=== PATIENT | female | born 1960 | race Caucasian/White ===

== ENCOUNTER 2017-08-20 07:52 | Emergency (ER) | payer MEDICARE, OTHER ==
[~2017-08-20] VITALS: Ht 157.5 cm; Wt 98.2 kg
[~2017-08-20 07:52] MED LIST: ASPI-664 PO; DIAZ-90 PO; EZET10TA3 PO; HYDR-3498 PO; METF500T4 PO; METO-103 PO; ONDA4TAB35 PO; ROSU20TA PO; VALS1TAB65 PO
[2017-08-20 07:56] VITALS: Ht 157.5 cm; Wt 98.2 kg
[2017-08-20] MEDS ORDERED: FAMOTIDINE 20 MG INJ IV STA (08:06)
[2017-08-20] MEDS ORDERED: DIPHENHYDRAMINE 50 MG INJ IV STA (08:06)
[2017-08-20] MEDS ORDERED: METHYLPREDNISOLONE 125 MG INJ IV STA (08:06)
[2017-08-20] MEDS ORDERED: DIPH25CA77 PO (08:47)
[2017-08-20] MEDS ORDERED: PRED50 PO (08:47)
[2017-08-20] MEDS ORDERED: FAMO20TA18 PO (08:47)
--- NOTE | 2017-08-20 08:51 | ERD ---
ER Documentation Chief Complaint Chief Complaint lip swelling and rash throughout her body did not take her BP meds HPI 57-year-old female presents to the emergency department with her daughter for evaluation of hives and lip swelling. Beginning yesterday, patient developed diffuse urticaria. She took some Benadryl and this helped somewhat. However, this morning she awoke with lip swelling. She denies tongue swelling or change in voice. She denies any wheezing. She has no lightheadedness. Patient reports no new medications were no new exposures. However, she has been taking an ARB for some time now. She has never had a similar type reaction ROS All systems reviewed and are negative except as per history of present illness. Medications Home Meds Active Scripts Prednisone (Prednisone) 50 Mg Tab, 50 MG PO DAILY for 5 Days, #5 TAB Prov:KALEIGH TRIVEDI 08/20/17 Famotidine* (Famotidine*) 20 Mg Tablet, 20 MG PO BID for 5 Days, #10 TAB Prov:KALEIGH TRIVEDI 08/20/17 Diphenhydramine HCl (Benadryl) 25 Mg Capsule, 25 MG PO TID for 5 Days, #15 CAP Prov:KALEIGH TRIVEDI 08/20/17 Diazepam* (Valium*) 5 Mg Tablet, 5 MG PO Q8 Y for MUSCLE SPASMS, #12 TAB Prov:EUGENIE HALEY MD 10/04/15 Ondansetron Hcl* (Zofran* ODT) 4 mg -ODT Tab.disper, 4 MG PO Q6 Y for NAUSEA AND /OR VOMITING, #20 TAB Prov:EUGENIE HALEY MD 10/04/15 Hydrocodone Bit-Acetaminophen* ([place]*) 5-325 Mg Tab, 1 TAB PO Q6 Y for PAIN, # 12 TAB Prov:EUGENIE HALEY MD 10/04/15 Reported Medications Aspirin* (Aspirin* EC) 81 Mg Tablet.dr, 81 MG PO DAILY, TAB 10/14/14 Ezetimibe* (Zetia*) 10 Mg Tablet, 10 MG PO DAILY, TAB 10/14/14 Metformin Hcl* (Metformin Hcl*) 500 Mg Tablet, 1000 TAB PO BID 09/27/11 Valsartan-Hydrochlorothiazide (Diovan HCT) 1 Tab Tablet, 1 TAB PO DAILY 09/27/11 Metoprolol Succinate (Toprol Xl) 50 Mg Tab.sr.24h, 1 TAB PO DAILY 09/27/11 Rosuvastatin Calcium* (Crestor*) 20 Mg Tablet, 1 TAB PO DAILY 09/27/11 Allergies Allergies: Coded Allergies: losartan (Verified Allergy, Severe, RASH , LIP SWELLING, 08/20/17) PMhx/Soc History of Surgery: Yes (appendectomy, cardiac stent placement) Anesthesia Reaction: No Hx Neurological Disorder: No Hx Respiratory Disorders: No Hx Cardiac Disorders: Yes (acute [place], HTN, hyperlipidemia ) Hx Psychiatric Problems: Yes (anxiety ) Hx Miscellaneous Medical Probl: Yes (diabetes ) Hx Alcohol Use: No Hx Substance Use: No Hx Tobacco Use: No Smoking Status: Never smoker FmHx Noncontributory for chief complaint Physical Exam Vitals Vital Signs Date Time Temp Pulse Resp B/P Pulse Ox O2 Delivery O2 Flow Rate FiO2 08/20/17 07:56 97.8 70 18 229/101 99 Physical Exam GENERAL: The patient is well developed and appropriate for usual state of health in no apparent distress HEENT: Pupils equal, round, and reactive to light. EOMI. There is no scleral icterus. Lower lip is swollen with evidence of angioedema. The upper lip appears to be normal. The oropharynx is normal. There is no uvular edema. The tongue is normal in appearance. NECK: C-spine is soft and supple, there is no meningismus. There is no cervical lymphadenopathy. There is no stridor. LUNGS: Clear to auscultation bilaterally. There are no rales, wheezes or rhonchi. HEART: Regular rate and rhythm, no murmurs, clicks, rubs or gallops. ABDOMEN: Soft, non-tender, non-distended. There are bowel sounds in all four quadrants. No rebound or guarding. EXTREMITIES: There is no peripheral cyanosis or edema. No focal swelling or erythema. NEURO: The patient moves all four extremities with 5/5 strength. Cranial nerves II - XII are intact. Normal gait. Alert and oriented SKIN: Hives noted. No evidence of infection HEME/LYMPHATIC: There is no evidence of excessive bruising or lymphedema. PSYCHIATRIC: The patient does not appear anxious or depressed. Results 24 hrs Current Medications Medications (Trade) Dose Ordered Sig/Christo Route PRN Reason Start Time Stop Time Status Last Admin Dose Admin Diphenhydramine HCl (Benadryl) 50 mg ONCE STAT IV 08/20/17 08:06 08/20/17 08:07 DC 08/20/17 08:20 Famotidine (Pepcid Iv) 20 mg ONCE STAT IV 08/20/17 08:06 08/20/17 08:07 DC 08/20/17 08:20 Methylprednisolone Sodium Succinate (Solu-Medrol) 125 mg ONCE STAT IV 08/20/17 08:06 08/20/17 08:07 DC 08/20/17 08:20 Procedures/MDM Patient was taken to a room, seen and examined. Patient was observed for approximately 1 hour after receiving antihistamines and steroid medication. Throughout that observation, patient showed no evidence of worsening anaphylaxis or angioedema. Patient had no evidence of respiratory compromise or airway compromise. Patient remained clinically well in appearance Medical decision makin-year-old female presented with angioedema. This is likely secondary to her ARB medication. At this time, patient shows no evidence of anaphylaxis or airway compromise and appears appropriate for outpatient supportive care. Family and patient have both been educated on the need for medication changes. Departure Diagnosis: Primary Impression: Angioedema due to angiotensin converting enzyme inhibitor(CLOVER-I) Additional Impression: Angioedema Condition: Stable Patient Instructions: Angioedema Additional Instructions: Please see your doctor this week. DO NOT EVER USE AN CLOVER INHIBITOR TYPE MEDICATION AGAIN Return for any problems or concerns KALEIGH TRIVEDI Aug 20, 2017 08:51
[2017-08-20 09:04] VITALS: BP 180/91; PULSE 72; RESP 18; TEMP 98.1
== END 2017-08-20 09:15 | disposition home or self-care (01) ==
LOC: E/R 07:52
DX: T78.3XXA Angioneurotic edema, initial encounter (principal); E11.9 Type 2 diabetes mellitus without complications; I10 Essential (primary) hypertension; T88.7XXA Unspecified adverse effect of drug or medicament, initial encounter; Y82.9 Unspecified medical devices associated with adverse incidents; Z98.61 Coronary angioplasty status; Z79.84 Long term (current) use of oral hypoglycemic drugs; Z79.82 Long term (current) use of aspirin
CPT/HCPCS: 96374; 96375; 99284; J1200; J2930

== ENCOUNTER 2017-08-22 14:27 | Emergency (ER) | payer MEDICARE, OTHER ==
[~2017-08-22] VITALS: Ht 160 cm; Wt 97.5 kg
[~2017-08-22 14:27] MED LIST changes: +DIPH25CA77 PO; +FAMO20TA18 PO; +PRED50 PO
[2017-08-22 14:28] VITALS: Ht 160 cm; Wt 97.5 kg
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
[2017-08-22 15:39] VITALS: BP 138/74; PULSE 86; RESP 20; TEMP 98.3
== END 2017-08-22 15:40 | disposition home or self-care (01) ==
LOC: E/R 14:27
DX: R60.0 Localized edema (principal); T46.5X5A Adverse effect of other antihypertensive drugs, initial encounter; I10 Essential (primary) hypertension; E11.9 Type 2 diabetes mellitus without complications; I25.10 Atherosclerotic heart disease of native coronary artery without angina pectoris; Z79.82 Long term (current) use of aspirin; Z95.1 Presence of aortocoronary bypass graft; Z79.84 Long term (current) use of oral hypoglycemic drugs
CPT/HCPCS: 99282

== ENCOUNTER 2017-08-28 02:24 | Inpatient (IN) | payer MEDICARE, OTHER ==
[2017-08-28] VITALS (7 sets, daily range): BP systolic 113–142; BP diastolic 59–68; PULSE 70–102; RESP 18–20; TEMP 99; Ht 167.6 cm; Wt 96.0 kg
[~2017-08-28] VITALS: Ht 167.6 cm; Wt 96.0 kg
[2017-08-28] MEDS ORDERED: morphine 4 MG/ML VIAL IV STA (04:28)
[2017-08-28] MEDS ORDERED: ONDANSETRON 4 MG INJ IV STA (04:28)
[2017-08-28] MEDS ORDERED: SOD CHLORIDE 0.9% 1,000 ML IV STA ×3 (04:28→07:51)
[2017-08-28 06:10] LABS: BASOPHILS % 0.2 % (0.0-2.0); EOSINOPHILS # 0.1 10^3/ul (0.0-0.5); EOSINOPHILS % 0.7 % (0.0-7.0); HEMATOCRIT 40.2 % (37.0-47.0); HEMOGLOBIN 13.8 g/dl (12.0-16.0); LYMPHOCYTES # 0.7 10^3/ul (0.8-2.9); LYMPHOCYTES % 4.3 % (15.0-51.0); MEAN CORPUSCULAR HEMOGLOBIN 30.6 pg (29.0-33.0); MEAN CORPUSCULAR HGB CONC 34.3 g/dl (32.0-37.0); MEAN CORPUSCULAR VOLUME 89.1 fl (82.0-101.0); MEAN PLATELET VOLUME 10.6 fl (7.4-10.4); MONOCYTE # 1.1 10^3/ul (0.3-0.9); MONOCYTES % 7.1 % (0.0-11.0); NEUTROPHIL # 13.1 10^3/ul (1.6-7.5); NEUTROPHILS % 86.4 % (39.0-77.0); PLATELET COUNT 260 10^3/UL (140-415); RED BLOOD COUNT 4.51 10^6/ul (4.20-5.40); RED CELL DISTRIBUTION WIDTH 12.6 % (11.5-14.5); WHITE BLOOD COUNT 15.2 10^3/ul (4.8-10.8)
[2017-08-28 06:39] LABS: ALANINE AMINOTRANSFERASE 48 IU/L (13-69); ALBUMIN 4.2 g/dl (3.3-4.9); ALKALINE PHOSPHATASE 71 IU/L (42-121); ANION GAP 17 (8-16); ASPARTATE AMINO TRANSFERASE 30 IU/L (15-46); BILIRUBIN,INDIRECT 0.5 mg/dl (0-1.1); BILIRUBIN,TOTAL 0.5 mg/dl (0.2-1.3); BLOOD UREA NITROGEN 23 mg/dl (7-20); CALCIUM 9.6 mg/dl (8.4-10.2); CARBON DIOXIDE 28 mmol/L (21-31); CHLORIDE 97 mmol/L (97-110); CREATININE 0.71 mg/dl (0.44-1.00); GLUCOSE 268 mg/dl (70-220); POTASSIUM 4.4 mmol/L (3.5-5.1); SODIUM 138 mmol/L (135-144); TOTAL PROTEIN 7.7 g/dl (6.1-8.1)
[2017-08-28 06:40] LABS: INR 0.95; PROTIME 12.8 Sec (11.9-14.9)
[2017-08-28] MEDS ORDERED: NITROGLYCERIN 2% 1 GM OINT PKT TD STA (06:40)
[2017-08-28] MEDS ORDERED: ASPIRIN 81 MG TAB PO STA (06:40)
[2017-08-28 06:58] LABS: TROPONIN-I < 0.012 ng/ml (0.00-0.12)
[2017-08-28 06:59] LABS: UR BILIRUBIN (Dip) NEGATIVE (NEGATIVE); UR CLARITY CLEAR (CLEAR); UR COLOR LT. YELLOW (YELLOW); UR GLUCOSE (Dip) NEGATIVE (NEGATIVE); UR KETONES (Dip) TRACE mg/dL (NEGATIVE); UR TOTAL PROTEIN (Dip) NEGATIVE (NEGATIVE)
[2017-08-28 07:00] LABS: ADD UMIC YES; UR BLOOD (Dip) 1+ mg/dL (NEGATIVE); UR LEUKOCYTE ESTERASE (Dip) NEGATIVE Leu/ul (NEGATIVE); UR NITRITE (Dip) NEGATIVE (NEGATIVE); UR UROBILINOGEN (Dip) 0.2 E.U./dL mg/dL (NEGATIVE)
[2017-08-28] MEDS ORDERED: NITROGLYCERIN (SL) 0.4 MG TAB SL PRN (07:00)
[2017-08-28 07:11] LABS: UR BACTERIA RARE /HPF (NONE SEEN); UR SQUAMOUS EPITHELIAL CELL RARE /HPF (FEW); URINE RBCS 0-2 /HPF (0)
--- NOTE | 2017-08-28 07:42 | RADRPT ---
PROCEDURE: XR Chest. CLINICAL INDICATION: Chest pain. TECHNIQUE: AP Portable chest. COMPARISON: CR CHEST 10/04/2015; CR CHEST 11/17/2012; CR CHEST 09/27/2011 FINDINGS: The cardiomediastinal silhouette is normal.The aortic arch is calcified. No focal consolidation, ple ural effusion or pneumothorax is seen. The osseous structures are intact. IMPRESSION: No radiographic evidence of acute cardiopulmonary disease. Physician Rajni Date Time Electronically viewed and signed by Jennifer Mosqueda Physician on 08/28/2017 07:41 CS/
[2017-08-28] MEDS ORDERED: CEFTRIAXONE 1 GM/50 ML (PMX) 50 ML IVPB ONE (08:00)
[2017-08-28] MEDS ORDERED: ONDANSETRON 4 MG INJ IV PRN ×2 (08:00→14:30)
[2017-08-28] MEDS ORDERED: ACETAMINOPHEN 325 MG TAB PO ONE (08:00)
[2017-08-28] MEDS ORDERED: ACETAMINOPHEN 325 MG TAB PO PRN (08:00)
--- NOTE | 2017-08-28 08:19 | RADRPT ---
PROCEDURE: CT of the abdomen and pelvis without contrast CLINICAL INDICATION: Nausea and vomiting TECHNIQUE: Spiral CT images through the abdomen and pelvis without the use of contrast. The admin istered radiation dose is CTDI 22.53 mGy and DLP 1414.84 mGy*cm. Coronal and sagittal reformatted i mages were submitted. One or more of the following dose reduction techniques were used: automated e xposure control, adjustment of the mA and/or kV according to patient size, or use of iterative recon struction technique. DICOM images are available. COMPARISON: CT 10/04/2015 FINDINGS: Lack of oral and intravenous contrast and motion artifact limits evaluation. Lingular and basilar linear atelectasis are visualized. There is motion artifact. No pleural effusion is seen. The liver, spleen, adrenals, kidneys, and pancreas are unremarkable in appearance. There is no evid ence of cholelithiasis or biliary ductal dilatation. The kidneys are normal in size and contour. The re are a few nonobstructing punctate bilateral renal calculi. No evidence of obstructive uropathy is seen. The aorta is calcified and normal in caliber.. There is no evidence for bowel obstruction, f ree air, or abscess. The appendix is are visualized. There are nondilated fluid-filled loops of sma ll bowel. There is colonic diverticulosis without evidence of diverticulitis. No adenopathy or asci thi is seen. The left lower abdominal wall of the transverse abdominus lipoma is unchanged. The [place] ilia is anteverted. The bladder is unremarkable.. The osseous structures are intact. IMPRESSION: Limited due to motion. No definite acute abnormality of the abdomen or pelvis. No evidence of bowel obstruction. Nonobstructing punctate bilateral renal calculi. Colonic diverticulosis without evidence of acute diverticulitis. RPTAT: HCNS Physician Rajni Date Time Electronically viewed and signed by Physician Rajni on 08/28/2017 08:18 CS/
--- NOTE | 2017-08-28 08:37 | ERD ---
ER Documentation Chief Complaint Chief Complaint bib fire for nausea and vomiting x 5 times today HPI Patient is a 57-year-old female with diabetes, hypertension, and coronary disease who presents with shortness of breath. The patient was in the ER last week 3 times for angioedema after taking losartan for the family. The patient started with vomiting last night at 11 PM that was constant for 1 hour. Her blood pressure was elevated at 230/175. She was brought in by ambulance this morning. She feels short of breath and says "the air was not enough". She is a dry mouth as well. She has had no treatment as of yet. She said that the symptoms felt similar to when she had a myocardial infarction in the past. Upon review of old medical records she does have multiple visits to the ER. ROS All systems reviewed and are negative except as per history of present illness. Medications Home Meds Active Scripts Prednisone (Prednisone) 50 Mg Tab, 50 MG PO DAILY for 5 Days, #5 TAB Prov:KALEIGH TRIVEDI 08/20/17 Famotidine* (Famotidine*) 20 Mg Tablet, 20 MG PO BID for 5 Days, #10 TAB Prov:KALEIGH TRIVEDI 08/20/17 Diphenhydramine HCl (Benadryl) 25 Mg Capsule, 25 MG PO TID for 5 Days, #15 CAP Prov:KALEIGH TRIVEDI 08/20/17 Diazepam* (Valium*) 5 Mg Tablet, 5 MG PO Q8 Y for MUSCLE SPASMS, #12 TAB Prov:EUGENIE HALEY MD 10/04/15 Ondansetron Hcl* (Zofran* ODT) 4 mg -ODT Tab.disper, 4 MG PO Q6 Y for NAUSEA AND /OR VOMITING, #20 TAB Prov:EUGENIE HALEY MD 10/04/15 Hydrocodone Bit-Acetaminophen* ([place]*) 5-325 Mg Tab, 1 TAB PO Q6 Y for PAIN, # 12 TAB Prov:EUGENIE HALEY MD 10/04/15 Reported Medications Aspirin* (Aspirin* EC) 81 Mg Tablet.dr, 81 MG PO DAILY, TAB 10/14/14 Ezetimibe* (Zetia*) 10 Mg Tablet, 10 MG PO DAILY, TAB 10/14/14 Metformin Hcl* (Metformin Hcl*) 500 Mg Tablet, 1000 TAB PO BID 1/21/12 Valsartan-Hydrochlorothiazide (Diovan HCT) 1 Tab Tablet, 1 TAB PO DAILY 09/27/11 Metoprolol Succinate (Toprol Xl) 50 Mg Tab.sr.24h, 1 TAB PO DAILY 09/27/11 Rosuvastatin Calcium* (Crestor*) 20 Mg Tablet, 1 TAB PO DAILY 09/27/11 Allergies Allergies: Coded Allergies: losartan (Verified Allergy, Severe, RASH , LIP SWELLING, 08/20/17) PMhx/Soc History of Surgery: Yes (corotid artery bipass) Anesthesia Reaction: No Hx Neurological Disorder: No Hx Respiratory Disorders: No Hx Cardiac Disorders: Yes (htn,) Hx Psychiatric Problems: Yes (Anxiety) Hx Alcohol Use: No Hx Substance Use: No Hx Tobacco Use: No Smoking Status: Never smoker FmHx Family History: diabetes Physical Exam Vitals Vital Signs Date Time Temp Pulse Resp B/P Pulse Ox O2 Delivery O2 Flow Rate FiO2 08/28/17 08:18 93 18 116/74 99 Room Air 08/28/17 07:10 100.3 120 20 114/68 95 Room Air 08/28/17 04:30 98.7 121 16 125/78 98 Room Air 08/28/17 02:31 98.8 121 18 160/83 100 Physical Exam Const: Moderate distress Head: Atraumatic Eyes: Normal Conjunctiva ENT: Normal External Ears, Nose and Mouth. Neck: Full range of motion..~ No meningismus. Resp: Clear to auscultation bilaterally Cardio: Tachycardic rate without murmur Abd: Soft, non tender, non distended. Normal bowel sounds Skin: No petechiae or rashes Back: No midline or flank tenderness Ext: No cyanosis, or edema Neur: Awake and alert Psych: Normal Mood and Affect Result Diagram: 08/28/17 0600 08/28/17 0600 Results 24 hrs Laboratory Tests Test 08/28/17 06:00 08/28/17 06:05 White Blood Count 15.210^3/ul Red Blood Count 4.5110^6/ul Hemoglobin 13.8g/dl Hematocrit 40.2% Mean Corpuscular Volume 89.1fl Mean Corpuscular Hemoglobin 30.6pg Mean Corpuscular Hemoglobin Concent 34.3g/dl Red Cell Distribution Width 12.6% Platelet Count 65248^3/UL Mean Platelet Volume 10.6fl Neutrophils % 86.4% Lymphocytes % 4.3% Monocytes % 7.1% Eosinophils % 0.7% Basophils % 0.2% Nucleated Red Blood Cells % 0.0/100WBC Neutrophils # 13.110^3/ul Lymphocytes # 0.710^3/ul Monocytes # 1.110^3/ul Eosinophils # 0.110^3/ul Basophils # 0.010^3/ul Nucleated Red Blood Cells # 0.010^3/ul Prothrombin Time 12.8Sec Prothrombin Time Ratio 1.0 INR International Normalized Ratio 0.95 Activated Partial Thromboplast Time 25.0Sec Sodium Level 138mmol/L Potassium Level 4.4mmol/L Chloride Level 97mmol/L Carbon Dioxide Level 28mmol/L Anion Gap 17 Blood Urea Nitrogen 23mg/dl Creatinine 0.71mg/dl Glucose Level 268mg/dl Lactic Acid Level 3.7mmol/L Calcium Level 9.6mg/dl Total Bilirubin 0.5mg/dl Direct Bilirubin 0.00mg/dl Indirect Bilirubin 0.5mg/dl Aspartate Amino Transf (AST/SGOT) 30IU/L Alanine Aminotransferase (ALT/SGPT) 48IU/L Alkaline Phosphatase 71IU/L Troponin I < 0.012ng/ml Total Protein 7.7g/dl Albumin 4.2g/dl Globulin 3.50g/dl Albumin/Globulin Ratio 1.20 Lipase 175U/L Urine Color LT. YELLOW Urine Clarity CLEAR Urine pH 5.5 Urine Specific [place] 1.025 Urine Ketones TRACEmg/dL Urine Nitrite NEGATIVEmg/dL Urine Bilirubin NEGATIVEmg/dL Urine Urobilinogen 0.2 E.U./dLmg/dL Urine Leukocyte Esterase NEGATIVELeu/ul Urine Microscopic RBC 0-2/HPF Urine Microscopic WBC 0-2/HPF Urine Squamous Epithelial Cells RARE/HPF Urine Bacteria RARE/HPF Urine Hemoglobin 1+mg/dL Urine Glucose NEGATIVEmg/dL Urine Total Protein NEGATIVEmg/dl Current Medications Medications (Trade) Dose Ordered Sig/Christo Route PRN Reason Start Time Stop Time Status Last Admin Dose Admin Sodium Chloride (NS) 1,000 ml @ 1,000 mls/hr Q1H STAT IV 08/28/17 04:28 08/28/17 05:27 DC 08/28/17 06:10 Morphine Sulfate (morphine) 4 mg ONCE STAT IV 08/28/17 04:28 08/28/17 04:30 DC 08/28/17 06:11 Ondansetron HCl 4 mg 4 mg ONCE STAT IV 08/28/17 04:28 08/28/17 04:30 DC 08/28/17 06:11 Sodium Chloride (NS) 1,000 ml @ 1,000 mls/hr Q1H STAT IV 08/28/17 06:40 08/28/17 07:39 DC 08/28/17 07:13 Aspirin (Aspirin) 162 mg ONCE STAT PO 08/28/17 06:40 08/28/17 06:41 DC 08/28/17 07:30 Nitroglycerin (Nitroglycerin 2% Oint) 1 inch ONCE STAT TD 08/28/17 06:40 08/28/17 06:41 DC 08/28/17 07:30 Nitroglycerin (Nitroglycerin (Sl Tab) 0.4 Mg) 1 tab Q5M UP TO 3 DOSES PRN SL CHEST PAIN 08/28/17 07:00 Ondansetron HCl (Zofran Inj) 4 mg ER BRIDGE PRN IV NAUSEA AND/OR VOMITING 08/28/17 08:00 08/29/17 07:59 Acetaminophen 650 mg 650 mg ER BRIDGE PRN PO MILD PAIN/FEVER 08/28/17 08:00 08/29/17 07:59 Sodium Chloride (NS) 1,000 ml @ 1,000 mls/hr Q1H STAT IV 08/28/17 07:51 08/28/17 08:50 08/28/17 08:06 Acetaminophen 650 mg 650 mg ONCE ONCE PO 08/28/17 08:00 08/28/17 08:01 DC 08/28/17 08:06 Ceftriaxone Sodium (Rocephin) 50 ml @ 100 mls/hr ONCE ONCE IVPB 08/28/17 08:00 08/28/17 08:29 DC 08/28/17 08:06 Procedures/MDM EKG read by me: Rate/Rhythm: Sinus tachycardia Intervals: Normal Impression: Tachycardia with ST depressions in leads I and aVL Chest x-ray is negative for pneumonia or pneumothorax per radiology. CT abdomen pelvis shows no surgical process per radiology. Admit MDM: Patient's infectious symptoms have not stabilized and the patient is at risk of rapid decompensation. The patient will be admitted for careful hydration, antibiotic therapy, and infectious source control. Severe Sepsis criteria: Infectious source: Unclear etiology at this time, possibly viral End organ damage indicated by: Lactate greater than 2 Sepsis Management: Time of recognition of sepsis: 7:10 AM once the patient developed a fever Within 3 hours of recognition: Blood cultures x 2 before broad-spectrum antibiotics: Yes 30 ml/kg NS bolus Completed Initial lactate 3.7 Repeat lactate pending Time of recognition of septic shock: No septic shock Septic Shock Assessment: Any lactic acid > 4.0 No Persistent hypotension (SBP < 90 or 40 mmHg drop, MAP < 65) despite 30 mL/kg IV fluid bolus No Volume Re-assessment for Septic Shock (post 30 ml/kg bolus): Septic shock at this time Persistent Hypotension Treatment: Comfort care No Central line Not Required Vasopressor started Not required I considered further perfusion assessment with CVP measurement, SCVO2, bedside ultrasound volume assessment, passive leg raise, trial of further fluid bolus. And proceeded with 30 ml/kg fluid bolus of NSS, broad spectrum antibiotics, and admission. The patient was also given aspirin nitroglycerin initially as there was concern this could have been acute coronary syndrome. Accepting Care Team Current data and ongoing care discussed. Admitting Physician: Dr. Matthews Oil [employer] Tool Driller(s): None Outstanding Data: Culture results and repeat lactic acid Critical Care: Critical care time 35 minutes excluding all billable procedures Emergent fluid management while maintaining close respiratory support. Provision of immediate and broad-spectrum antibiotic therapy. Simultaneous assessment for possible sources in order to direct targeted therapy. Consideration for invasive and chemical support to prevent cardiopulmonary collapse. Departure Diagnosis: Primary Impression: Chest pain Chest pain type: unspecified Qualified Code: R07.9 - Chest pain, unspecified type Additional Impressions: Hypertensive urgency Nausea and vomiting Vomiting type: unspecified Vomiting Intractability: non-intractable Qualified Code: R11.2 - Non-intractable vomiting with nausea, unspecified vomiting type Severe sepsis Hyperglycemia Condition: THERESA Hunter MD Aug 28, 2017 08:37
[2017-08-28] MEDS ORDERED: METO-319 PO (12:42)
[2017-08-28] MEDS ORDERED: METF500T4 PO (12:42)
[2017-08-28] MEDS ORDERED: ROSU20TA PO (12:43)
[2017-08-28] MEDS ORDERED: VALS1TAB78 PO (12:43)
--- NOTE | 2017-08-28 14:08 | HP ---
Date/Time of Note Date/Time of Note DATE: 08/28/17 TIME: 13:55 Assessment/Plan VTE Prophylaxis VTE Prophylaxis Intervention: LMWH Assessment/Plan Assessment/Plan 57-year-old female who presents with epigastric discomfort with associated nausea with the followin. Abdominal pain and nausea likely secondary to diabetic gastroparesis rule out possible peptic ulcer disease 2. Mild diabetic ketoacidosis with ketonuria and metabolic/lactic acidosis. 3. Systemic inflammatory response syndrome likely secondary to #2 4. Hypertension with improved control. 5. History of dyslipidemia Plan: Patient is being admitted for further monitoring and workup, as there was concerns of some shortness of breath, will rule out an acute coronary syndrome. Patient's DKA is mild, so I will just start her on subcutaneous insulin with IV fluids and hold off on insulin drip for now. Will repeat labs every 4 hours and adjust regimen as necessary. Also send cultures and use pain control/ antiemetics/ antipyretics/ supportive care as needed. Further interventions will depend on clinical course. HPI/ROS Admit Date/Time Admit Date/Time Aug 28, 2017 at 08:04 Hx of Present Illness 57-year-old female who presents to emergency room with epigastric pain since 9 PM yesterday associated with a lot of nausea and vomiting. She has a history of diabetes hypertension or coronary artery disease. Pain is associated with diffuse abdominal pain. Per report from the ER she had also complained of some shortness of breath. At the time of my review patient denies shortness of breath however. She denies fever, denies palpitation denies dysuria or hematuria. Last bowel movement was yesterday and seemed to be normal. ROS 12 point review if systems was done and pertinent findings are as noted. PMH/Family/Social Past Medical History * CAD Medical History: diabetes, high cholesterol, hypertension Social History Alcohol Use: none Smoking Status: Never smoker Exam/Review of Systems Vital Signs Vitals Vital Signs Date Time Temp Pulse Resp B/P Pulse Ox O2 Delivery O2 Flow Rate FiO2 08/28/17 13:30 98.3 76 20 113/59 100 Room Air Exam Constitutional: alert, oriented, other (obese) Psych: anxiety Head: normocephalic Eyes: PERRL, No icteric Neck: non-tender, supple Respiratory: clear to auscultation, diminished breath sounds Cardiovascular: regular rate and rhythm, No murmurs/extra sounds Gastrointestinal: bowel sounds, soft, tender ( in epigastric area) Neurological: No focal weakness Labs Result Diagram: 08/28/17 0600 08/28/17 0600 Procedures Procedures Laboratory Tests Test 08/28/17 06:00 08/28/17 06:05 08/28/17 09:08 White Blood Count 15.210^3/ul Red Blood Count 4.5110^6/ul Hemoglobin 13.8g/dl Hematocrit 40.2% Mean Corpuscular Volume 89.1fl Mean Corpuscular Hemoglobin 30.6pg Mean Corpuscular Hemoglobin Concent 34.3g/dl Red Cell Distribution Width 12.6% Platelet Count 66716^3/UL Mean Platelet Volume 10.6fl Neutrophils % 86.4% Lymphocytes % 4.3% Monocytes % 7.1% Eosinophils % 0.7% Basophils % 0.2% Nucleated Red Blood Cells % 0.0/100WBC Neutrophils # 13.110^3/ul Lymphocytes # 0.710^3/ul Monocytes # 1.110^3/ul Eosinophils # 0.110^3/ul Basophils # 0.010^3/ul Nucleated Red Blood Cells # 0.010^3/ul Prothrombin Time 12.8Sec Prothrombin Time Ratio 1.0 INR International Normalized Ratio 0.95 Activated Partial Thromboplast Time 25.0Sec Sodium Level 138mmol/L Potassium Level 4.4mmol/L Chloride Level 97mmol/L Carbon Dioxide Level 28mmol/L Anion Gap 17 Blood Urea Nitrogen 23mg/dl Creatinine 0.71mg/dl Glucose Level 268mg/dl Lactic Acid Level 3.7mmol/L 2.6mmol/L Calcium Level 9.6mg/dl Total Bilirubin 0.5mg/dl Direct Bilirubin 0.00mg/dl Indirect Bilirubin 0.5mg/dl Aspartate Amino Transf (AST/SGOT) 30IU/L Alanine Aminotransferase (ALT/SGPT) 48IU/L Alkaline Phosphatase 71IU/L Troponin I < 0.012ng/ml Total Protein 7.7g/dl Albumin 4.2g/dl Globulin 3.50g/dl Albumin/Globulin Ratio 1.20 Lipase 175U/L Urine Color LT. YELLOW Urine Clarity CLEAR Urine pH 5.5 Urine Specific [place] 1.025 Urine Ketones TRACEmg/dL Urine Nitrite NEGATIVEmg/dL Urine Bilirubin NEGATIVEmg/dL Urine Urobilinogen 0.2 E.U./dLmg/dL Urine Leukocyte Esterase NEGATIVELeu/ul Urine Microscopic RBC 0-2/HPF Urine Microscopic WBC 0-2/HPF Urine Squamous Epithelial Cells RARE/HPF Urine Bacteria RARE/HPF Urine Hemoglobin 1+mg/dL Urine Glucose NEGATIVEmg/dL Urine Total Protein NEGATIVEmg/dl Current Medications Medications (Trade) Dose Ordered Sig/Christo Route PRN Reason Start Time Stop Time Status Last Admin Dose Admin Sodium Chloride (NS) 1,000 ml @ 1,000 mls/hr Q1H STAT IV 08/28/17 04:28 08/28/17 05:27 DC 08/28/17 06:10 1,000 MLS/HR Morphine Sulfate (morphine) 4 mg ONCE STAT IV 08/28/17 04:28 08/28/17 04:30 DC 08/28/17 06:11 4 MG Ondansetron HCl 4 mg 4 mg ONCE STAT IV 08/28/17 04:28 08/28/17 04:30 DC 08/28/17 06:11 4 MG Sodium Chloride (NS) 1,000 ml @ 1,000 mls/hr Q1H STAT IV 08/28/17 06:40 08/28/17 07:39 DC 08/28/17 07:13 1,000 MLS/HR Aspirin (Aspirin) 162 mg ONCE STAT PO 08/28/17 06:40 08/28/17 06:41 DC 08/28/17 07:30 162 MG Nitroglycerin (Nitroglycerin 2% Oint) 1 inch ONCE STAT TD 08/28/17 06:40 08/28/17 06:41 DC 08/28/17 07:30 1 INCH Nitroglycerin (Nitroglycerin (Sl Tab) 0.4 Mg) 1 tab Q5M UP TO 3 DOSES PRN SL CHEST PAIN 08/28/17 07:00 Ondansetron HCl (Zofran Inj) 4 mg ER BRIDGE PRN IV NAUSEA AND/OR VOMITING 08/28/17 08:00 08/29/17 07:59 Acetaminophen 650 mg 650 mg ER BRIDGE PRN PO MILD PAIN/FEVER 08/28/17 08:00 08/29/17 07:59 Sodium Chloride (NS) 1,000 ml @ 1,000 mls/hr Q1H STAT IV 08/28/17 07:51 08/28/17 08:50 DC 08/28/17 08:06 1,000 MLS/HR Acetaminophen 650 mg 650 mg ONCE ONCE PO 08/28/17 08:00 08/28/17 08:01 DC 08/28/17 08:06 650 MG Ceftriaxone Sodium (Rocephin) 50 ml @ 100 mls/hr ONCE ONCE IVPB 08/28/17 08:00 08/28/17 08:29 DC 08/28/17 08:06 100 MLS/HR PROCEDURE: XR Chest. CLINICAL INDICATION: Chest pain. TECHNIQUE: AP Portable chest. COMPARISON: CR CHEST 10/04/2015; CR CHEST 11/17/2012; CR CHEST 09/27/2011 FINDINGS: The cardiomediastinal silhouette is normal.The aortic arch is calcified. No focal consolidation, pleural effusion or pneumothorax is seen. The osseous structures are intact. IMPRESSION: No radiographic evidence of acute cardiopulmonary disease. Physician Rajni Date Time Electronically viewed and signed by Jennifer Mosqueda Physician on 08/28/2017 07: 41 CS/ CC: THERESA MADERA MD PROCEDURE: CT of the abdomen and pelvis without contrast CLINICAL INDICATION: Nausea and vomiting TECHNIQUE: Spiral CT images through the abdomen and pelvis without the use of contrast. The administered radiation dose is CTDI 22.53 mGy and DLP 1414.84 mGy*cm. Coronal and sagittal reformatted images were submitted. One or more of the following dose reduction techniques were used: automated exposure control, adjustment of the mA and/or kV according to patient size, or use of iterative reconstruction technique. DICOM images are available. COMPARISON: CT 10/04/2015 FINDINGS: Lack of oral and intravenous contrast and motion artifact limits evaluation. Lingular and basilar linear atelectasis are visualized. There is motion artifact. No pleural effusion is seen. The liver, spleen, adrenals, kidneys, and pancreas are unremarkable in appearance. There is no evidence of cholelithiasis or biliary ductal dilatation. The kidneys are normal in size and contour. There are a few nonobstructing punctate bilateral renal calculi. No evidence of obstructive uropathy is seen. The aorta is calcified and normal in caliber.. There is no evidence for bowel obstruction, free air, or abscess. The appendix is are visualized. There are nondilated fluid-filled loops of small bowel. There is colonic diverticulosis without evidence of diverticulitis. No adenopathy or ascites is seen. The left lower abdominal wall of the transverse abdominus lipoma is unchanged. The uterus is anteverted. The bladder is unremarkable.. The osseous structures are intact. IMPRESSION: Limited due to motion. No definite acute abnormality of the abdomen or pelvis. No evidence of bowel obstruction. Nonobstructing punctate bilateral renal calculi. Colonic diverticulosis without evidence of acute diverticulitis. RPTAT: HCNS Physician Rajni Date Time Electronically viewed and signed by Physician Rajni on 08/28/2017 08: 18 CS/ CC: THERESA MADERA MD, B[place] M. Aug 28, 2017 14:08
[2017-08-28] MEDS ORDERED: GLUCOSE GEL 15 GRAM TUBE BUCCAL PRN (14:30)
[2017-08-28] MEDS ORDERED: DEXTROSE 50% 50 ML SYRINGE IV PRN ×2 (14:30)
[2017-08-28] MEDS ORDERED: GLUCAGON 1 MG INJ IM PRN (14:30)
[2017-08-28] MEDS ORDERED: GLUCOSE GEL 15 GRAM TUBE PO PRN ×2 (14:30)
[2017-08-28 15:44] LABS: CREATINE KINASE < 20 IU/L (23-200)
[2017-08-28 15:45] LABS: CALCIUM 8.6 mg/dl (8.4-10.2); CREATININE 0.59 mg/dl (0.44-1.00); POTASSIUM 4.1 mmol/L (3.5-5.1)
[2017-08-28 15:57] LABS: CK-MB 0.55 ng/ml (0.0-2.4)
[2017-08-28 16:00] LABS: TROPONIN-I < 0.012 ng/ml (0.00-0.12)
[2017-08-28] MEDS: SOD CHLORIDE 0.9% 1,000 ML IV SCH (16:49)
[2017-08-28] MEDS: INSULIN ASPART [NOVOLOG] 3 ML PEN SC SCH ×2 (17:35)
[2017-08-28] MEDS: INSULIN GLARGINE [LANtus] 3 ML PEN SC SCH (20:56)
[2017-08-28] MEDS: METOCLOPRAMIDE 10 MG INJ IV SCH (20:59)
[2017-08-28] MEDS: POLYETHYLENE GLYCOL 17 GM PACKET PO SCH (20:59)
[2017-08-28 21:43] LABS: CREATINE KINASE < 20 IU/L (23-200)
[2017-08-28 21:55] LABS: CALCIUM 8.4 mg/dl (8.4-10.2); CK-MB 0.53 ng/ml (0.0-2.4); CREATININE 0.59 mg/dl (0.44-1.00); POTASSIUM 3.9 mmol/L (3.5-5.1)
[2017-08-28 21:56] LABS: TROPONIN-I < 0.012 ng/ml (0.00-0.12)
[2017-08-28] MEDS: FAMOTIDINE 20 MG TAB PO SCH (22:25)
[2017-08-28] MEDS: ATORVASTATIN 80 MG TAB PO SCH (23:06)
[2017-08-29] VITALS (16 sets, daily range): BP systolic 114–212; BP diastolic 61–96; PULSE 78–114; RESP 18–19
[2017-08-29] MEDS: METOCLOPRAMIDE 10 MG INJ IV SCH ×6 (00:03→23:35)
[2017-08-29] MEDS: ACCU-CHEK XX SCH (02:06)
[2017-08-29] MEDS ORDERED: ACETAMINOPHEN 325 MG TAB ONE (02:21)
[2017-08-29] MEDS: INSULIN GLARGINE [LANtus] 3 ML PEN SC SCH ×2 (03:12→20:21)
[2017-08-29] MEDS: INSULIN ASPART [NOVOLOG] 3 ML PEN SC SCH ×8 (03:13→20:15)
[2017-08-29] MEDS: SOD CHLORIDE 0.9% 1,000 ML IV SCH ×4 (03:13→20:29)
[2017-08-29] MEDS: PANTOPRAZOLE 40 MG INJ IV SCH ×3 (03:14→17:32)
[2017-08-29] MEDS: POLYETHYLENE GLYCOL 17 GM PACKET PO SCH (08:08)
[2017-08-29] MEDS: HYDROCHLOROTHIAZIDE 25 MG TAB PO SCH (08:09)
[2017-08-29] MEDS: ASPIRIN (EC) 81 MG TAB PO SCH (08:09)
[2017-08-29] MEDS: EZETIMIBE 10 MG TAB PO SCH (08:09)
[2017-08-29] MEDS: FAMOTIDINE 20 MG TAB PO SCH ×2 (08:10→20:15)
[2017-08-29] MEDS: VALSARTAN 160 MG TAB PO SCH (08:10)
[2017-08-29 08:28] LABS: BASOPHILS % 0.2 % (0.0-2.0); EOSINOPHILS # 0.1 10^3/ul (0.0-0.5); EOSINOPHILS % 1.4 % (0.0-7.0); HEMATOCRIT 33.5 % (37.0-47.0); HEMOGLOBIN 11.4 g/dl (12.0-16.0); LYMPHOCYTES # 1.4 10^3/ul (0.8-2.9); LYMPHOCYTES % 22.8 % (15.0-51.0); MEAN CORPUSCULAR HEMOGLOBIN 30.5 pg (29.0-33.0); MEAN CORPUSCULAR VOLUME 89.6 fl (82.0-101.0); MEAN PLATELET VOLUME 10.8 fl (7.4-10.4); MONOCYTE # 0.5 10^3/ul (0.3-0.9); MONOCYTES % 7.8 % (0.0-11.0); NEUTROPHIL # 4.3 10^3/ul (1.6-7.5); NEUTROPHILS % 67.2 % (39.0-77.0); PLATELET COUNT 229 10^3/UL (140-415); RED BLOOD COUNT 3.74 10^6/ul (4.20-5.40); RED CELL DISTRIBUTION WIDTH 13.2 % (11.5-14.5); WHITE BLOOD COUNT 6.3 10^3/ul (4.8-10.8)
[2017-08-29 08:53] LABS: CALCIUM 8.6 mg/dl (8.4-10.2); CHOL/HDL RATIO 6.6 RATIO; CREATININE 0.55 mg/dl (0.44-1.00); MAGNESIUM 1.9 mg/dl (1.7-2.5); POTASSIUM 3.6 mmol/L (3.5-5.1)
[2017-08-29] MEDS ORDERED: METOPROLOL (XL) 50 MG TAB PO SCH (09:00)
[2017-08-29 09:22] LABS: THYROID STIMULATING HORMONE 1.61 MIU/L (0.465-4.680)
--- NOTE | 2017-08-29 14:53 | PN ---
Date/Time of Note Date/Time of Note DATE: 08/29/17 TIME: 14:50 Assessment/Plan VTE Prophylaxis VTE Prophylaxis Intervention: SCD's Lines/Catheters IV Catheter Type (from Nrs): Mid Line Urinary Cath still in place: No Assessment/Plan Chief Complaint/Hosp Course Assessment and plan 1. Abdominal pain and nausea likely secondary to diabetic gastroparesis versus peptic ulcer disease. Patient does report less pain in epigastric area at this time. Continue on antacid medication. 2. Mild diabetic ketoacidosis. Improving present. Continue insulin regimen. 3. Hypertension. Will continue on antihypertensives and adjust needed. 4. High cholesterol. Continue on statin medication. 5. Flank pain. Patient noted with renal stone on chest renal stone and abdominal imaging. We will follow-up on renal ultrasound. Disposition plan: Appears to be improving at present. Anticipate discharge within the next 24 hours medically stable. Discussed plan of care with Dr. Hill Problems: Subjective 24 Hr Interval Summary Free Text/Dictation reports less abd pain but states she has some back flank pain Exam/Review of Systems Vital Signs Vitals Vital Signs Date Time Temp Pulse Resp B/P Pulse Ox O2 Delivery O2 Flow Rate FiO2 08/29/17 12:00 85 08/29/17 11:50 98.3 18 148/72 96 08/29/17 03:30 Room Air Intake and Output 08/28/17 08/28/17 08/29/17 15:00 23:00 07:00 Intake Total 300 ml Balance 300 ml Exam Constitutional: alert, oriented Psych: nl mood/affect Head: normocephalic Neck: non-tender, supple Respiratory: clear to auscultation, normal air movement Cardiovascular: regular rate and rhythm Gastrointestinal: soft, tender (minimally on flnaks) Musculoskeletal: nl extremities to inspection Neurological: [employer] II-XII intact, nl mental status, nl speech Skin: nl turgor Results Result Diagram: 08/29/17 0739 08/29/17 0740 Results 24 hrs Laboratory Tests Test 08/28/17 15:01 08/28/17 16:32 08/28/17 20:54 08/28/17 21:18 Sodium Level 138 137 Potassium Level 4.1 3.9 Chloride Level 101 102 Carbon Dioxide Level 28 28 Anion Gap 13 11 Blood Urea Nitrogen 17 11 Creatinine 0.59 0.59 Glucose Level 148 # 137 Calcium Level 8.6 8.4 Creatine Kinase < 20 L < 20 L Creatine Kinase Index Creatinine Kinase MB (Mass) 0.55 0.53 Troponin I < 0.012 < 0.012 Bedside Glucose 119 152 Test 08/29/17 02:05 08/29/17 07:33 08/29/17 07:39 08/29/17 07:40 Bedside Glucose 137 155 White Blood Count 6.3 # Red Blood Count 3.74 L Hemoglobin 11.4 L Hematocrit 33.5 L Mean Corpuscular Volume 89.6 Mean Corpuscular Hemoglobin 30.5 Mean Corpuscular Hemoglobin Concent 34.0 Red Cell Distribution Width 13.2 Platelet Count 229 Mean Platelet Volume 10.8 H Neutrophils % 67.2 Lymphocytes % 22.8 Monocytes % 7.8 Eosinophils % 1.4 Basophils % 0.2 Nucleated Red Blood Cells % 0.0 Neutrophils # 4.3 Lymphocytes # 1.4 Monocytes # 0.5 Eosinophils # 0.1 Basophils # 0.0 Nucleated Red Blood Cells # 0.0 Hemoglobin A1c 7.2 H Sodium Level 141 Potassium Level 3.6 Chloride Level 105 Carbon Dioxide Level 27 Anion Gap 13 Blood Urea Nitrogen 6 L Creatinine 0.55 Glucose Level 167 Calcium Level 8.6 Magnesium Level 1.9 Triglycerides Level 162 H Cholesterol Level 232 H LDL Cholesterol, Calculated 165 HDL Cholesterol 35 Cholesterol/HDL Ratio 6.6 Thyroid Stimulating Hormone (TSH) 1.610 Test 08/29/17 11:47 Bedside Glucose 183 Medications Medications Current Medications Metoclopramide HCl (Reglan) 5 mg Q6 IV Last administered on 08/29/17 11:54; Admin Dose 5 MG; Start 08/28/17 at 14:00 Pantoprazole 40 mg 40 mg BID@06,18 IV Last administered on 08/29/17 05:31; Admin Dose 40 MG; Start 08/28/17 at 18:00 Sodium Chloride (NS) 1,000 ml @ 125 mls/hr Q8H IV Last administered on 14:36; Admin Dose 125 MLS/HR; Start 08/28/17 at 14:00 Polyethylene Glycol (Miralax) 17 gm DAILY PO Last administered on 08/29/17 08 :08; Admin Dose 17 GM; Start 08/28/17 at 14:00 Diagnostic Test (Pha) (Accu-Chek) 1 ea 02 XX Last administered on 08/29/17 02 :06; Admin Dose 1 EA; Start 08/29/17 at 02:00 Insulin Glargine (Lantus) 14 unit DAILY@20 SC Last administered on 08/28/17 20:56; Admin Dose 14 UNIT; Start 08/28/17 at 14:00 Aspirin (Halfprin) 81 mg DAILY PO Last administered on 08/29/17 08:09; Admin Dose 81 MG; Start 08/29/17 at 09:00 EZETIMIBE (Zetia) 10 mg DAILY PO Last administered on 08/29/17 08:09; Admin Dose 10 MG; Start 08/29/17 at 09:00 Metoprolol Succinate (Toprol Xl) 50 mg DAILY PO Last administered on 08:09; Admin Dose 50 MG; Start 08/29/17 at 09:00 Atorvastatin Calcium (Lipitor) 80 mg DAILY@21 PO Last administered on 23:06; Admin Dose 80 MG; Start 08/28/17 at 21:00 Hydrochlorothiazide (Hydrochlorothiazide) 25 mg DAILY PO Last administered on 08/29/17 08:09; Admin Dose 25 MG; Start 08/29/17 at 09:00 Ondansetron HCl (Zofran Inj) 4 mg Q6H PRN IV NAUSEA AND/OR VOMITING; Start at 14:30 Famotidine (Pepcid) 20 mg BID PO Last administered on 08/29/17 08:10; Admin Dose 20 MG; Start 08/28/17 at 21:00 Miscellaneous Information 1 ea NOTE XX ; Start 08/28/17 at 14:30 Glucose (Glutose) 15 gm Q15M PRN PO DECREASED GLUCOSE; Start 08/28/17 at 14:30 Glucose (Glutose) 22.5 gm Q15M PRN PO DECREASED GLUCOSE; Start 08/28/17 at 14: 30 Dextrose (D50w Syringe) 25 ml Q15M PRN IV DECREASED GLUCOSE; Start 08/28/17 at 14:30 Dextrose (D50w Syringe) 50 ml Q15M PRN IV DECREASED GLUCOSE; Start 08/28/17 at 14:30 Glucagon (Glucagen) 1 mg Q15M PRN IM DECREASED GLUCOSE; Start 08/28/17 at 14: 30 Glucose (Glutose) 15 gm Q15M PRN BUCCAL DECREASED GLUCOSE; Start 08/28/17 at 14:30 Valsartan (Diovan) 160 mg DAILY PO Last administered on 08/29/17t 08:10; Admin Dose 160 MG; Start 08/29/17 at 09:00 DANY CUMMINGS Aug 29, 2017 14:53
--- NOTE | 2017-08-29 17:52 | RADRPT ---
PROCEDURE: Renal US. CLINICAL INDICATION: Flank pain. TECHNIQUE: Multiple sonographic images of the kidneys and urinary bladder were obtained. The imag es were reviewed on a PACS workstation. COMPARISON: CT scan of the abdomen and pelvis dated August 28, 2017 which demonstrated a nonobst ructing punctate bilateral renal calculi. FINDINGS: The right kidney measures 11.6 x 5.5 x 4.9 cm. The left kidney measures 12.3 x 5.5 x 4.6 cm. There is no renal mass. There is no hydronephrosis. There is no renal calculus. Renal parenchymal thickness is normal bilaterally. Echogenicity is normal bilaterally. The perirenal regions are normal with no fluid collection or mass. The urinary bladder is unremarkable. IMPRESSION: 1. Unremarkable renal ultrasound. 2. Previously noted punctate renal calculi are not visualized with ultrasound. RPTAT: QQ .Ervin Harris MD, Date Time Electronically viewed and signed by .Ervin Harris MD, on 08/29/2017 16:37 .R/
[2017-08-29] MEDS ORDERED: hydrALAzine 20 MG INJ ONE (20:09)
[2017-08-29] MEDS: hydrALAzine 20 MG INJ IV PRN (20:15)
[2017-08-29] MEDS: ATORVASTATIN 80 MG TAB PO SCH (20:15)
[2017-08-29] MEDS: ACETAMINOPHEN 325 MG TAB PO PRN (20:39)
[2017-08-30] VITALS (14 sets, daily range): BP systolic 132–207; BP diastolic 65–100; PULSE 70–99; RESP 17–19
[2017-08-30] MEDS: ACCU-CHEK XX SCH (01:02)
[2017-08-30] MEDS: SOD CHLORIDE 0.9% 1,000 ML IV SCH ×2 (04:10→13:00)
[2017-08-30] MEDS: PANTOPRAZOLE 40 MG INJ IV SCH (05:27)
[2017-08-30] MEDS: hydrALAzine 20 MG INJ IV PRN ×2 (05:28→11:50)
[2017-08-30] MEDS: METOCLOPRAMIDE 10 MG INJ IV SCH ×2 (05:33→11:50)
[2017-08-30 06:39] LABS: BASOPHILS % 0.5 % (0.0-2.0); EOSINOPHILS # 0.3 10^3/ul (0.0-0.5); EOSINOPHILS % 4.8 % (0.0-7.0); HEMATOCRIT 34.8 % (37.0-47.0); HEMOGLOBIN 11.7 g/dl (12.0-16.0); LYMPHOCYTES # 1.9 10^3/ul (0.8-2.9); LYMPHOCYTES % 32.6 % (15.0-51.0); MEAN CORPUSCULAR HEMOGLOBIN 30.2 pg (29.0-33.0); MEAN CORPUSCULAR HGB CONC 33.6 g/dl (32.0-37.0); MEAN CORPUSCULAR VOLUME 89.9 fl (82.0-101.0); MEAN PLATELET VOLUME 10.5 fl (7.4-10.4); MONOCYTE # 0.7 10^3/ul (0.3-0.9); MONOCYTES % 11.3 % (0.0-11.0); NEUTROPHIL # 2.9 10^3/ul (1.6-7.5); NEUTROPHILS % 49.9 % (39.0-77.0); PLATELET COUNT 231 10^3/UL (140-415); RED BLOOD COUNT 3.87 10^6/ul (4.20-5.40); WHITE BLOOD COUNT 5.9 10^3/ul (4.8-10.8)
[2017-08-30] MEDS: ACETAMINOPHEN 325 MG TAB PO PRN ×2 (06:41→10:12)
[2017-08-30] MEDS ORDERED: METOPROLOL (XL) 100 MG TAB PO ONE (06:52)
[2017-08-30] MEDS: VALSARTAN 160 MG TAB PO SCH (07:01)
[2017-08-30] MEDS ORDERED: METOPROLOL (XL) 50 MG TAB PO ONE (07:02)
[2017-08-30 07:04] LABS: CREATININE 0.54 mg/dl (0.44-1.00); POTASSIUM 3.6 mmol/L (3.5-5.1)
[2017-08-30] MEDS: EZETIMIBE 10 MG TAB PO SCH (08:28)
[2017-08-30] MEDS: HYDROCHLOROTHIAZIDE 25 MG TAB PO SCH (08:28)
[2017-08-30] MEDS: POLYETHYLENE GLYCOL 17 GM PACKET PO SCH (08:28)
[2017-08-30] MEDS: FAMOTIDINE 20 MG TAB PO SCH (08:28)
[2017-08-30] MEDS: ASPIRIN (EC) 81 MG TAB PO SCH (08:29)
[2017-08-30] MEDS: INSULIN ASPART [NOVOLOG] 3 ML PEN SC SCH ×4 (08:41→12:07)
[2017-08-30] MEDS ORDERED: METOPROLOL (XL) 100 MG TAB PO SCH (09:00)
[2017-08-30] MEDS ORDERED: HEPARIN 5,000 UNIT/0.5 ML VIAL SC SCH (09:00)
[2017-08-30] MEDS ORDERED: METO-336 PO (11:48)
[2017-08-30] MEDS ORDERED: AMLO-147 PO (11:48)
[2017-08-30] MEDS ORDERED: PANT40TA3 PO (11:48)
[2017-08-30] MEDS ORDERED: FIORICET PO (11:52)
--- NOTE | 2017-08-30 11:56 | PDOCDIS ---
Discharge Instructions DIAGNOSIS Discharge Diagnosis 1. Abdominal pain and nausea likely secondary to peptic ulcer disease. 2. Mild diabetic ketoacidosis. 3. Hypertension. 4. High cholesterol. 5. Flank pain. CONDITION Patient Condition: Stable HOME CARE INSTRUCTIONS: Diet Instructions: Low Fat /CholesterolSpecial Diet: carbohydrate controlled FOLLOW UP/APPOINTMENTS Follow-up Plan Follow up with your primary care provider in one week DANY CUMMINGS Aug 30, 2017 11:55
[2017-08-30] MEDS ORDERED: AMLODIPINE 5 MG TAB PO SCH (12:00)
[2017-08-30] MEDS ORDERED: TRAM50TA2 PO (12:30)
[2017-08-30] MEDS ORDERED: ACET/BUTAL/CAFF TAB PO ONE (13:00)
--- NOTE | 2017-09-03 23:55 | DS ---
Date/Time of Note Date/Time of Note DATE: 09/03/17 TIME: 23:52 Discharge Summary Admission/Discharge Info Admit Date/Time Aug 28, 2017 at 08:04 Discharge Date/Time Aug 30, 2017 at 17:40 Discharge Diagnosis 1. Abdominal pain and nausea likely secondary to peptic ulcer disease. 2. Mild diabetic ketoacidosis. 3. Hypertension. 4. High cholesterol. 5. Flank pain. Patient Condition: Stable Hospital Course This is a 57-year-old female with history of diabetes, high cholesterol, hypertension, came to [facility] due to reports of epigastric pain that started 9 PM prior to admission. She also reported some nausea and vomiting. She did come to [facility] due to the aformentiond issues. She did have serial troponins drawn which were all essentially negative. Chest imaging did also show to have no radiographic evidence of cardiopulmonary disease. Abdominal pelvic CT scan showed her to have no definite acute abnormality. There is also seen some nonobstructing punctate bilateral renal calculus and colonic diverticulosis without evidence of diverticulitis. Patient reported some flank pain and this was possibly due to her renal calculus. She was provided with IV hydration. Renal ultrasound also done after pelvic CT scan was done showed unremarkable renal ultrasound and previously noted punctate renal calculi not visualized to the ultrasound. She did respond well to IV hydration and there is a possibility that renal stones may have passed during the course of stay. She was otherwise optimized medically. She is continued on insulin for her diabetes and antihypertensives for her hypertension. She is also resumed on statin medication for her high cholesterol. Her flank pain and had also resolved. She was also advanced to a diet which she did tolerate well. During the course of stay she did improve. The plan of care was discussed with the patient and patient did verbalize her understanding. On the day of discharge patient was in stable condition Discussed plan of care with Dr. Hill [place] Meds Active Scripts Tramadol HCl (Tramadol HCl) 50 Mg Tablet, 50 MG PO Q6H Y for PAIN, #20 TAB Prov:DANY CUMMINGS 08/30/17 Acetamin/Butalbital/Caffeine* (Fioricet*) [id number] Tab, 1 TAB PO Q4H Y for HEADACHE, #30 TAB Prov:DANY CUMMINGS 08/30/17 Pantoprazole* (Protonix*) 40 Mg Tablet.dr, 40 MG PO DAILY, #30 TAB Prov:LAYLADANY EMANUEL 08/30/17 Metoprolol Succinate* (Toprol XL*) 100 Mg Tab.sr.24h, 100 MG PO DAILY, #30 TAB Prov:ZOILADANY 08/30/17 Amlodipine Besylate* (Amlodipine Besylate*) 10 Mg Tablet, 5 MG PO BID, #60 TAB Prov:ZOILADANY 08/30/17 Reported Medications Rosuvastatin Calcium* (Crestor*) 20 Mg Tablet, 20 MG PO QHS, #30 TAB 08/28/17 Metformin Hcl* (Metformin Hcl*) 500 Mg Tablet, 500 MG PO BID WITH MEALS, #30 TAB 08/28/17 Aspirin* (Aspirin* EC) 81 Mg Tablet.dr, 81 MG PO DAILY, TAB 10/14/14 Ezetimibe* (Zetia*) 10 Mg Tablet, 10 MG PO DAILY, TAB 10/14/14 Discontinued Reported Medications Metoprolol Succinate* (Toprol XL*) 50 Mg Tab.er.24h, 50 MG PO DAILY, #30 TAB 08/28/17 Valsartan-Hydrochlorothiazide (Diovan HCT) 1 Tab Tablet, 1 TAB PO DAILY 09/27/11 Discontinued Scripts Prednisone (Prednisone) 50 Mg Tab, 50 MG PO DAILY for 5 Days, #5 TAB Prov:KALEIGH TRIVEDI 08/20/17 Famotidine* (Famotidine*) 20 Mg Tablet, 20 MG PO BID for 5 Days, #10 TAB Prov:KALEIGH TRIVEDI 08/20/17 Diphenhydramine HCl (Benadryl) 25 Mg Capsule, 25 MG PO TID for 5 Days, #15 CAP Prov:KALEIGH TRIVEDI 08/20/17 Diazepam* (Valium*) 5 Mg Tablet, 5 MG PO Q8 Y for MUSCLE SPASMS, #12 TAB Prov:EUGENIE HALEY MD 10/04/15 Ondansetron Hcl* (Zofran* ODT) 4 mg -ODT Tab.disper, 4 MG PO Q6 Y for NAUSEA AND /OR VOMITING, #20 TAB Prov:EUGENIE HALEY MD 10/04/15 Hydrocodone Bit-Acetaminophen* (Gila*) 5-325 Mg Tab, 1 TAB PO Q6 Y for PAIN, # 12 TAB Prov:EUGENIE HALEY MD 10/04/15 Follow-up Plan Follow up with your primary care provider in one week Primary Care Provider Radha Pavon Time spent on discharge: > 30 minutes DANY CUMMINGS Sep 03, 2017 23:55
== END 2017-08-30 17:40 | disposition home or self-care (01) | DRG 383 ==
LOC: FTE 02:24 → MS3 08:04 → TEL 08-29 02:58
PROVIDERS: ADMIT Family Medicine; ATTEND Family Medicine
DX: K27.9 Peptic ulcer, site unspecified, unspecified as acute or chronic, without hemorrhage or perforation (principal); E11.10 Type 2 diabetes mellitus with ketoacidosis without coma; R65.10 Systemic inflammatory response syndrome (SIRS) of non-infectious origin without acute organ dysfunction; I10 Essential (primary) hypertension; I25.10 Atherosclerotic heart disease of native coronary artery without angina pectoris; E78.00 Pure hypercholesterolemia, unspecified; Z79.82 Long term (current) use of aspirin; Z79.84 Long term (current) use of oral hypoglycemic drugs; Z95.1 Presence of aortocoronary bypass graft
CPT/HCPCS: 36415; 71010; 74176; 76775; 80048; 80053; 80061; 81001; 82550; 82553; 82962; 83036; 83605; 83690; 83735; 84443; 84484; 85025; 85610; 85730; 87040; 87086; 87400; 93005; 96374; 96375; C9113; J0360; J0696; J1644; J1815; J2270; J2405; J2765; J7030